=== PATIENT | male | born 1955 | race Caucasian/White ===

== ENCOUNTER 2017-02-04 09:18 | Emergency (ER) | payer BC ==
--- NOTE | 2017-02-04 09:52 | EDM.PDOC ---
ED HPI GENERAL MEDICAL PROBLEM - General Chief Complaint: Lower Extremity Injury/Pain Stated Complaint: "HAVING RIGHT LEG PAIN" Time Seen by Provider: 02/04/17 09:40 Source of Information: Reports: Patient History Limitations: Reports: No Limitations - History of Present Illness INITIAL COMMENTS - FREE TEXT/NARRATIVE: Carlton is a 61 yo male who presents to the ER with concerns of right lateral hip pain. States it has been gradually getting worse over the last few weeks. Admits he had something similar quite a few years ago and ended up getting an injection in his hip. 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 Admits about 6 weeks ago he did have some back discomfort and it slowly resolved. States this week the hip pain seemed to worsen every day. Was going to wait to go in and see his primary physician Dr. Carroll in [place] but this morning the pain was really starting to bother him. He has been taking acetaminophen 1000mg every 6 hours with minimal relief. He denies any known injury or trauma to the leg. States laying on the hip or initially when he gets up the pain will intensify. He points to the lateral part of his hip is where it hurts. Onset: Gradual Duration: Getting Worse Location: Reports: Lower Extremity, Right Quality: Reports: Sharp Associated Symptoms: Reports: No Other Symptoms Treatments ACCOUNTING PROFESSOR: Reports: Acetaminophen - Related Data Allergies Allergy/AdvReac Type Severity Reaction Status Date / Time No Known Allergies Allergy Verified 02/04/17 09:30 Home Meds: Home Meds Aspirin [Halfprin] 81 mg PO DAILY 06/20/16 [History] Carvedilol 25 mg PO BID 06/20/16 [History] Cholecalciferol (Vitamin D3) [Vitamin D3] 2,000 units PO DAILY 06/20/16 [History ] Lisinopril 2.5 mg PO DAILY 06/20/16 [History] Multivitamin [Daily Multiple Vitamin] 1 ea PO DAILY 06/20/16 [History] Warfarin [Coumadin] 1 mg PO ASDIRECTED 06/20/16 [History] Past Medical History Other Cardiovascular History: said 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; had some testing done for hernia repair surgery, leaking; had been SOB and dizzy when bending over for months; saw cardiology in [place], [facility]; reports showed some Afib in hospital; said he has seen a conference services coordinator in [place] since surgery, and his family practitioner in [place] last week--said he listened to his heart and lungs; history says moderate pulmonary hypertension; since AVR: no cp, no dizziness, appetitie improving, says he has an area left groin that is tender from where they were going to put in a heart "pump" with this surgery; used radial insertion for tests, healing; has lost 5 lbs after this surgery, weight up and down 5 pounds since; can drive next week Other Gastrointestinal History: postop ileus after AVR Other Musculoskeletal History: RIGHT HIP AND LEG PAIN FOR PAST MONTH. Neurological History: Reports: None - Past Surgical History Cardiovascular Surgical History: Reports: Vascular Surgery Other Cardiovascular Surgeries/Procedures: OPEN HEART SURGERY 2016. Other Musculoskeletal Surgeries/Procedures:: inguinal hernia repair Social & Family History - Tobacco Use Smoking Status *Q: Never Smoker - Caffeine Use Caffeine Use: Reports: Coffee Other Caffeine Use: 2 cups coffee/day, discussed Review of Systems - Review of Systems Review Of Systems: ROS reveals no pertinent complaints other than HPI. ED EXAM, GENERAL - Physical Exam Exam: See Below Exam Limited By: No Limitations General Appearance: Alert, No Apparent Distress Back Exam: No: Decreased Range of Motion, Muscle Spasm, Paraspinal Tenderness, Vertebral Tenderness Extremities: Other (Tenderness with palpation over greater trochanter on the right. ROM limited d/t discomfort with flexion and extension of the right hip. ROM of the knee intact without discomfort. Strength of right lower extremity intact but with increased discomfort against resistance. ) Neurological: Alert, Oriented, Normal Cognition Psychiatric: Normal Affect, Normal Mood Skin Exam: Warm, Dry, Intact, Normal Color, No Rash Course - Vital Signs Last Recorded V/S: Last Vital Signs Temp 97.9 F 02/04/17 09:52 Pulse 64 02/04/17 09:52 Resp 20 02/04/17 09:52 BP 151/78 H 02/04/17 09:52 Pulse Ox 97 02/04/17 09:52 - Orders/Labs/Meds Orders: Active Orders 24 hr Category Date Time Status Hip Min 2V or 3V Rt [CR] Stat Exams 02/04/17 09:46 Ordered Labs: Laboratory Tests 02/04/17 02/04/17 Range/Units 09:50 09:50 WBC 6.5 (5.0-10.0) 10^3/uL RBC 4.82 (4.50-6.00) 10^6/uL Hgb 13.9 L (14.0-18.0) g/dL Hct 41.9 (40.0-54.0) % MCV 86.9 (82.0-94.0) fL MCH 28.8 (27.0-32.0) pg MCHC 33.2 (33.0-38.0) g/dL RDW Coeff of Bucky 12.9 (11.0-15.0) % Plt Count 195 (150-400) 10^3/uL Neut % (Auto) 69.5 (35-85) % Lymph % (Auto) 20.9 (10-55) % Coke % (Auto) 8.8 (0-16) % Eos % (Auto) 0.6 (0-5) % Baso % (Auto) 0.2 (0-3) % Neut # (Auto) 4.48 (1.80-7.00) 10^3/uL Lymph # (Auto) 1.35 (1.00-4.80) 10^3/uL Coke # (Auto) 0.57 (0.00-0.80) 10^3/uL Eos # (Auto) 0.04 (0.00-0.45) 10^3/uL Baso # (Auto) 0.01 10^3/uL PT 29.6 H (9.7-12.3) SEC INR 2.66 H (0.92-1.18) Meds: Medications Discontinued Medications Generic Name Dose Route Start Last Admin Trade Name Alondra PRN Reason Stop Dose Admin Bupivacaine HCl 10 ml 02/04/17 10:06 Sensorcaine-Mpf 0.5% INJECT 02/04/17 10:07 ONETIME ONE Methylprednisolone Acetate 80 mg 02/04/17 10:06 Depo-Medrol IM 02/04/17 10:07 ONETIME ONE - Re-Assessments/Exams Free Text/Narrative Re-Assessment/Exam: X-rays were negative for any acute fractures, etc... Departure - Departure Time of Disposition: 10:23 Disposition: Home, Self-Care 01 Condition: Good Clinical Impression: Trochanteric bursitis of right hip - Discharge Information Instructions: Hip Pain, Trochanteric Bursitis With Rehab-[facility] Forms: ED Department Discharge Additional Instructions: 1) Rest 2) Ice packs to the affected area. 20 minutes at a time, 4-6 times a day. 3) May continue to use Tylenol 500-1000mg every 6 hours. Recommend not taking more than 4000mg of Tylenol in a 24 hr period. 4) Avoiding prolonged standing and the activity that causes pain. Using a cane or crutches to reduce pressure on the hip may help. - Problem List & Annotations (1) Trochanteric bursitis of right hip SNOMED Code(s): 8753429 Code(s): M70.61 - TROCHANTERIC BURSITIS, RIGHT HIP Status: Acute - Problem List Review Problem List Initiated/Reviewed/Updated: Yes - My Orders Last 24 Hours: My Active Orders 02/04/17 09:46 Hip Min 2V or 3V Rt [CR] Stat - Assessment/Plan Last 24 Hours: My Active Orders 02/04/17 09:46 Hip Min 2V or 3V Rt [CR] Stat Plan: See additional instructions. Again, x-rays showed no fractures. Arthritic changes noted in the hip joint. Treatment options discussed with Carlton. D/t being on Coumadin he is not a candidate for oral NSAIDS. Elected to proceed with injection today. Risks and benefits were discussed into detail in regards to injection. Risks included: infection, increased bleeding, flare reaction, etc... Area was prepped with Betadine for a sterile field. 1.5 ml of Sensorcaine and .5ml of Depo Medrol was injected into the trochanteric bursa without complications. No bleeding was noted. He did get some mild relief.
[2017-02-04 09:56] VITALS: BP 151/78
[2017-02-04] MEDS ORDERED: Bupivacaine 0.5% 10 ML SDV INJECT ONE (10:06)
[2017-02-04] MEDS ORDERED: methylPREDNISolone Acetate 80 MG/ML SDV IM ONE (10:06)
== END 2017-02-04 10:30 | disposition home or self-care (01) ==
LOC: CC.ED 09:18
DX: M70.61 Trochanteric bursitis, right hip (principal); Z79.899 Other long term (current) drug therapy; Z79.82 Long term (current) use of aspirin
CPT/HCPCS: 20610; 36415; 73502; 85025; 85610; 99284; J1040; 96372

== ENCOUNTER → 2019-08-29 | Day surgery (SDC) | payer BC, MEDICARE ==
[~2019-08-29] MED LIST: Ketamine 200 MG/20 ML MDV IV ONE; Phenylephrine 1% 10 MG/ML SDV IV ONE; Propofol 200 MG/20 ML SDV IV ONE; ePHEDrine 50 MG/ML SDV IV ONE; fentaNYL 100 MCG/2 ML SDV IV ONE
[2019-08-29] MEDS: Lactated Ringers 1,000 ML IV SCH (08:17)
[2019-08-29 10:55] VITALS: BP 110/68; PULSE 51
--- NOTE | 2019-08-29 12:29 | OR ---
DATE OF OPERATION: 08/29/2019 PREOPERATIVE DIAGNOSIS: FAMILY HISTORY OF COLON CANCER. POSTOPERATIVE DIAGNOSIS: FAMILY HISTORY OF COLON CANCER. SURGEON: Greg Sewell MD PROCEDURE: FULL-LENGTH COLONOSCOPY WITH SNARE POLYPECTOMY X2, POLYP BIOPSY X3. ANESTHESIA: MAC. COMPLICATIONS: None. SPECIMEN: 1. Two small sessile polyps, splenic flexure and sigmoid colon, each approximately 3 mm. 2. Biopsies x3, larger villous lesion, proximal ascending colon. FINDINGS: 1. Full-length colonoscopy. 2. Sessile polyps x2, left colon, each 3 mm. 3. Elongated large villous adenoma, proximal ascending colon. RECOMMENDATIONS: Would recommend consultation with Dr. Kishor Dover for definitive removal of this lesion, likely via endoscopy. Given its high risk and size, the patient needs a surgical consultation for this. INDICATIONS: The patient's mother has a history of colon cancer. This gentleman is a 64-year-old who has never had a prior endoscopy, Sacha Trinidad sent him for such. DESCRIPTION OF PROCEDURE: The patient was prepped and draped, placed in the left lateral decubitus position. A lubricated Olympus colonoscope inserted and with ease advanced to the cecum. Direct visualization of the ileocecal valve and appendiceal orifice accomplished. The bowel prep was excellent. Upon withdrawal of the scope, cecal pouch appeared benign. In the proximal and mid ascending colon, the patient has an elongated villous lesion that wraps around the haustral fold. It is quite elongated and large, and due to its high risk due to the volume of mucosal lining occupying, we elected to just biopsy 3 times. The rest of the ascending and transverse colons were completely unremarkable. Right at the splenic flexure, the patient had a small 3 mm sessile polyp removed in its entirety with a forceps biopsy x2. The rest of the descending colon was benign. The sigmoid colon in its midportion had another small sessile polyp also removed with a forceps biopsy in its entirety. There were no other polyps, masses, ulceration, or bleeding sites. No vascular abnormalities or signs of colitis. The rectal vault appeared benign. Retroflexion showed no perianal lesions. Air was suctioned, scope removed without complication. AYSE/BREANNA /[id number]
== END ==
LOC: CC.SDS 07:53
PROVIDERS: ATTEND Family Medicine
DX: Z12.11 Encounter for screening for malignant neoplasm of colon (principal); D12.2 Benign neoplasm of ascending colon; D12.3 Benign neoplasm of transverse colon; I25.2 Old myocardial infarction; F43.21 Adjustment disorder with depressed mood; Z79.01 Long term (current) use of anticoagulants; Z80.0 Family history of malignant neoplasm of digestive organs; Z79.82 Long term (current) use of aspirin; Z79.899 Other long term (current) drug therapy
CPT/HCPCS: 36415; 45380; 85610; J2370; J2704; J3010; J7120; 00811; 88305